=== PATIENT | male | born 1980 | race Caucasian/White ===

== ENCOUNTER 2020-08-11 17:20 | Emergency (ER) | payer SELFPAY ==
[~2020-08-11] VITALS: Ht 167.6 cm; Wt 82.0 kg
[2020-08-11] MEDS ORDERED: NAPR-1176 MT (19:51)
[2020-08-11 21:15] VITALS: BP 123/77
== END 2020-08-11 22:21 | disposition home or self-care (01) ==
LOC: ER 17:20
DX: M79.672 Pain in left foot (principal); Z98.890 Other specified postprocedural states
CPT/HCPCS: 29515; 73610; 73630; 93005; 99284